=== PATIENT | male | born 1975 | race Caucasian/White ===

== ENCOUNTER 2017-06-28 08:43 | Emergency (ER) | payer MEDICAID ==
[~2017-06-28] VITALS: Ht 188 cm; Wt 105.8 kg
[2017-06-28 08:47] VITALS: BP 126/90
== END 2017-06-28 09:55 | disposition home or self-care (01) ==
LOC: ED 08:43
DX: J20.9 Acute bronchitis, unspecified (principal); F17.210 Nicotine dependence, cigarettes, uncomplicated; I10 Essential (primary) hypertension; E11.9 Type 2 diabetes mellitus without complications
CPT/HCPCS: J7613; J7644; Q0092

== ENCOUNTER 2018-04-05 17:34 | Emergency (ER) | payer OTHER | END 2018-04-05 20:02 | disposition other institution (70) | LOC: ED 17:34 | DX: Z53.21 Procedure and treatment not carried out due to patient leaving prior to being seen by health care provider (principal) ==

== ENCOUNTER 2018-04-05 17:34 | Emergency (ER) | payer MEDICAID ==
[~2018-04-05] VITALS: Ht 188 cm; Wt 111.1 kg
[2018-04-05 17:40] VITALS: Ht 188 cm; Wt 111.1 kg
[2018-04-05 18:23] LABS: BASOPHIL % 0.5 % (0-2); PLATELET COUNT 269 x10^3mcL (130-400); RED CELL DISTRIBUTION WIDTH 13.8 % (11.5-14.5)
[2018-04-05 18:56] LABS: CALCIUM 8.8 mg/dL (8.5-10.1); CARBON DIOXIDE 28.1 mmol/L (21-32); CHLORIDE SERUM 106 mmol/L (98-107); GFR1 39 mL/min; GLUCOSE SERUM 275 mg/dL (74-106); POTASSIUM SERUM 3.2 mmol/L (3.5-5.1); SODIUM SERUM 143 mmol/L (136-145)
[2018-04-05 19:03] LABS: ALKALINE PHOSPHATASE 120 U/L (46-116); ALT/SGPT 48 U/L (16-63); AST/SGOT 52 U/L (15-37); BILIRUBIN TOTAL 0.66 mg/dL (0.20-1.00); TOTAL PROTEIN, SERUM 6.5 g/dL (6.4-8.2)
[2018-04-05 19:04] LABS: ALBUMIN 3.2 g/dL (3.4-5.0)
[2018-04-05 19:38] LABS: AMPHETAMINE QUAL UR POSITIVE (See below)
[2018-04-05 20:02] VITALS: BP 147/87
== END 2018-04-05 20:02 | disposition other institution (70) ==
LOC: ED 17:34
PROVIDERS: Emergency Medicine
DX: E11.65 Type 2 diabetes mellitus with hyperglycemia (principal); I10 Essential (primary) hypertension; M79.671 Pain in right foot; M79.672 Pain in left foot; F15.10 Other stimulant abuse, uncomplicated; F12.10 Cannabis abuse, uncomplicated
CPT/HCPCS: 82962; G0480; J0360; J1885; J2060; J7030; Q0092

== ENCOUNTER 2020-05-09 17:38 | Emergency (ER) | payer MEDICAID ==
[~2020-05-09] VITALS: Ht 188 cm; Wt 108.9 kg
[2020-05-09 17:40] VITALS: Ht 188 cm; Wt 108.9 kg
[2020-05-09 19:55] LABS: CALCIUM 8.4 mg/dL (8.5-10.1); CARBON DIOXIDE 27.4 mmol/L (21-32); CREATININE SERUM 2.2 mg/dL (0.7-1.3); POTASSIUM SERUM 3.3 mmol/L (3.5-5.1)
[2020-05-09 19:57] LABS: BASOPHIL % 0.3 % (0-2); PLATELET COUNT 217 x10^3mcL (130-400); RED CELL DISTRIBUTION WIDTH 14.8 % (11.5-14.5)
[2020-05-09 20:09] LABS: BILIRUBIN TOTAL 0.7 mg/dL (0.20-1.00); T4(THYROXINE) 5.1 ug/dL (4.7-13.3); TOTAL PROTEIN, SERUM 6.4 g/dL (6.4-8.2)
[2020-05-09 20:16] LABS: ALBUMIN 3.1 g/dL (3.4-5.0)
[2020-05-09 20:22] LABS: microscopic required? YES; urine erythrocyte TRACE (NEGATIVE)
[2020-05-09 20:41] LABS: AMPHETAMINE QUAL UR POSITIVE (See below)
[2020-05-09 21:26] VITALS: BP 120/74
== END 2020-05-09 21:00 | disposition home or self-care (01) ==
LOC: ED 17:38
PROVIDERS: Emergency Medicine
DX: K57.30 Diverticulosis of large intestine without perforation or abscess without bleeding (principal); D72.829 Elevated white blood cell count, unspecified; E11.9 Type 2 diabetes mellitus without complications; E78.00 Pure hypercholesterolemia, unspecified; I45.2 Bifascicular block; I45.19 Other right bundle-branch block; F17.210 Nicotine dependence, cigarettes, uncomplicated; E66.9 Obesity, unspecified; F12.20 Cannabis dependence, uncomplicated; F15.20 Other stimulant dependence, uncomplicated; Z68.30 Body mass index [BMI] 30.0-30.9, adult; Z59.0 Homelessness; Z86.2 Personal history of diseases of the blood and blood-forming organs and certain disorders involving the immune mechanism
CPT/HCPCS: 99406; J0500; J1885; J7030; Q0092